=== PATIENT | female | born 1960 | race Caucasian/White ===

== ENCOUNTER 2018-01-20 16:35 | Emergency (ER) | payer OTHER ==
[~2018-01-20] VITALS: Ht 170.2 cm; Wt 78.0 kg
[~2018-01-20 16:35] MED LIST: ACETAMINOPHEN650 M5 PO; CIPROFLOXACIN500 M3 PO; FLAGYL500 MG PO; PREDNISONE50 MG PO; VENTOLIN HFA INH8 GM IH
[2018-01-20 17:10] LABS: ABSOLUTE BASOPHILS 0.1 thou/uL (0.0-0.2); ABSOLUTE EOSINOPHILS 0.1 thou/uL (0.0-0.7); ABSOLUTE MONOCYTES 0.4 thou/uL (0.0-1.2); ABSOLUTE NEUTROPHILS 3.3 thou/uL (1.6-8.1); EOSINOPHILS 2.3 %; HEMATOCRIT 43.5 % (37.0-47.0); HEMOGLOBIN 14.6 gm/dL (12.0-15.0); LYMPHOCYTES 33.1 %; MCH 28.9 pg (26.0-34.0); MCHC 33.6 g/dL (28.0-37.0); MCV 86.1 fL (80.0-100.0); MONOCYTES 7.2 %; MPV 7.8 fl. (7.2-11.1); NUCLEATED RBCS 0 /100WBC; PLATELET COUNT* 246 thou/uL (150-400); POLYS 56.4 %; RBC 5.05 mil/uL (4.20-5.00); RDW-CV 13.7 % (10.5-14.5); WBC 5.9 thou/uL (4.0-11.0)
[2018-01-20 17:19] LABS: ANION GAP 11 mmol/L (7-16); BUN 14 mg/dL (7-18); CALCIUM 9.1 mg/dL (8.5-10.1); CHLORIDE 103 mmol/L (98-107); CO2 26 mmol/L (21-32); CREATININE 0.9 mg/dL (0.6-1.3); GLUCOSE 103 mg/dL (70-99); SODIUM 140 mmol/L (136-145)
[2018-01-20 17:26] LABS: ALBUMIN 3.6 g/dL (3.4-5.0); ALKALINE PHOSPHATASE 81 U/L (46-116); SGOT 12 U/L (15-37); SGPT 17 U/L (30-65); TOTAL BILIRUBIN 0.2 mg/dL (<0.1-1.0); TOTAL PROTEIN 7.2 g/dL (6.4-8.2); TROPONIN-I LEVEL <0.06 ng/mL (<0.06)
[2018-01-20 18:40] LABS: URINE BILIRUBIN NEGATIVE (Negative); URINE BLOOD NEGATIVE (Negative); URINE CLARITY CLEAR; URINE COLOR YELLOW; URINE GLUCOSE-RANDOM NEGATIVE (Negative); URINE KETONES NEGATIVE (Negative); URINE LEUKOCYTES NEGATIVE (Negative); URINE NITRITE NEGATIVE (Negative); URINE PROTEIN NEGATIVE (Negative); URINE UROBILINOGEN 0.2 E.U./dl (0.2-1.0)
[2018-01-20 19:00] LABS: AMP/METHAMP Negative (Negative); BARBITURATES Negative (Negative); BENZODIAZEPINES Negative (Negative); COCAINE Negative (Negative); METHADONE Negative (Negative); OPIATES Negative (Negative); PCP Negative (Negative); THC POSITIVE (Negative)
[2018-01-20 19:21] VITALS: BP 123/72
--- NOTE | 2018-01-21 11:09 | EKG ---
[place] [address] ELECTROCARDIOGRAM REPORT Name: SAM BURNS Room: [facility]#: [id number] Admission: 01/20/18 Attend Phys: Discharge: 01/20/18 Date of : 60 Report #: [id number] THIS REPORT FOR: //name// [facility] ED Test Date: 2018-01-20 Test Time: 16:39:09 Pat Name: SAM BURNS Department: Room: Gender: F [employer] Lieutenant: : 1960 Requested By: Jyothi Ramirez Order Number: [id number] MD: Thomas Fleming Measurements Intervals [place] Rate: 84 P: 44 OK: 148 QRS: -17 QRSD: 84 T: 60 QT: 369 QTc: 437 Interpretive Statements Sinus rhythm Borderline left axis deviation Abnormal R-wave progression, early transition No previous ECG available for comparison Electronically Signed On 01-21-2018 11:09:33 [employer] by Thomas Fleming [email or web address] <ELECTRONICALLY SIGNED> By: Thomas Fleming MD, [facility] 01/21/18 1109 [id number] Thomas Fleming MD, FACC /EPI
== END 2018-01-20 19:22 | disposition home or self-care (01) ==
LOC: M.ERS 16:35
PROVIDERS: Nurse Practitioner Family
DX: R07.89 Other chest pain (principal); Z88.5 Allergy status to narcotic agent